=== PATIENT | male | born 1945 | race Caucasian/White ===

== ENCOUNTER 2018-05-30 10:10 | Emergency (ER) | payer OTHER, MEDICAID ==
[~2018-05-30] VITALS: Ht 172.7 cm; Wt 86.0 kg
[~2018-05-30 10:10] MED LIST: AMLO10TA80 PO; ASPI-1073 PO; ATOR-2 PO; CEPH-568 PO; CLOP75TA16 PO; HYDR-1348 PO; NITR12SP6 TL
[2018-05-30 18:43] VITALS: BP 111/49
== END 2018-05-31 02:06 | disposition left against medical advice (07) ==
LOC: ER 10:10
DX: R42 Dizziness and giddiness (principal); Z53.21 Procedure and treatment not carried out due to patient leaving prior to being seen by health care provider
CPT/HCPCS: 93005